=== PATIENT | male | born 1955 | race Caucasian/White ===

== ENCOUNTER 2018-12-19 10:55 | Day surgery (SDC) | payer OTHER ==
[2018-12-19] MEDS ORDERED: Ketamine HCl 50 MG/ML IV ONE (10:56)
[2018-12-19] MEDS ORDERED: Depo-Medrol 40 MG/ML IM ONE (10:56)
[2018-12-19] MEDS ORDERED: DIPRIVAN 200 MG/20 ML IV ONE (10:56)
[2018-12-19] MEDS ORDERED: Sodium Chloride 0.9(Preservative Free) 10 ML IJ ONE (10:56)
[2018-12-19] MEDS ORDERED: Lactated Ringers 1,000 ML IV ONE (14:23)
--- NOTE | 2018-12-19 16:27 | XRAY ---
24 seconds fluoroscopy time in surgery for left L4-S1 DONTRELL.
--- NOTE | 2018-12-20 05:06 | XRAY ---
Indication: Left L4-S1 DONTRELL. Intraoperative fluoroscopy was provided for 24 seconds. 2 digital spot images submitted for interpretation demonstrate posterior needle tips projected over the expected course of the left L4 and L5 nerve roots. A small contrast has been injected for needle tip placement. Correlate with intraoperative findings/report.
== END 2018-12-19 12:46 | disposition home or self-care (01) ==
LOC: SDC-PAIN 10:55
PROVIDERS: ATTEND Psychiatry & Neurology Pain Medicine
DX: M54.16 Radiculopathy, lumbar region (principal); M46.96 Unspecified inflammatory spondylopathy, lumbar region; I10 Essential (primary) hypertension; J44.9 Chronic obstructive pulmonary disease, unspecified; F41.9 Anxiety disorder, unspecified
CPT/HCPCS: 64483; 64484; 72020; 77003; J1030; J2704; Q9966

== ENCOUNTER 2019-01-24 14:33 | Emergency (ER) | payer OTHER ==
[2019-01-24] MEDS ORDERED: XYLOCAINE 1% HCL 20 ML MDV ONE (14:55)
--- NOTE | 2019-01-24 14:57 | ERPHSYRPT ---
- History of Present Illness Time Seen by Provider: 01/24/19 14:51 Source: patient Exam Limitations: no limitations Patient Subjective Stated Complaint: Pt states "I cut my hand with a experimental box tester. " Triage Nursing Assessment: Pt presented alert and oriented X 3, skin pwd. Pt ambulates with an upright steady gait, able to speak in clear full sentences. Pt has approx 2 cm laceration noted to left hadn proximal to thumb Physician History: 63-year-old white male arrives with complaint of laceration to his left hand dorsal surface symptoms since just prior to arrival. Patient states that he was cutting a hose with a box knife. He slipped and cut his left hand he has a 2 cm laceration running longitudinally proximal to the left hand first intertriginous space dorsal surface. He has full range of motion to the left hand and fingers good capillary refill to left hand and fingers sensation is intact to left hand and fingers. Past medical history includes high blood pressure, COPD Past surgical history includes right shoulder surgery. Occurred: just prior to arrival Method of Injury: incised (lacerated dorsal left hand with box knife) Extremities Pain Location: hand: left Modifying Factors: Improves With: nothing Associated Symptoms: none Allergies/Adverse Reactions: shrimp Allergy (Verified 11/29/16 15:15) Home Medications: Albuterol Sulfate [Albuterol Sulfate Hfa] 2 puff IH Q4-6HPRN PRN 11/29/16 [ History] Furosemide 20 mg [Lasix 20 mg] 20 mg PO DAILY 11/29/16 [History] Lisinopril 20 mg [Zestril 20 MG] 20 mg PO BID 11/29/16 [History] Metoprolol Tartrate [Lopressor] 100 mg PO BID 11/29/16 [History] Potassium Citrate [Potassium Citrate ER] 10 meq PO DAILY 11/29/16 [History] Amlodipine Besylate [Norvasc] 0 mg PO DAILY 03/03/17 [History] Bupropion HCl Xl 150 mg [Wellbutrin XL 150 MG] 150 mg PO BID 03/03/17 [ History] Hydroxyzine Pamoate 25 mg PO DAILY 03/03/17 [History] Naproxen 500 mg [Naprosyn 500 MG] 500 mg PO BID 10/24/17 [History] Oxycodone HCl/Acetaminophen [Percocet 7.5-325 mg Tablet] 1 each PO Q6H PRN PRN 10/24/17 [History] Hx Tetanus, Diphtheria Vaccination/Date Given: Yes Hx Influenza Vaccination/Date Given: No Hx Pneumococcal Vaccination/Date Given: No Immunizations Up to Date: Yes - Review of Systems Constitutional: No Fever, No Chills Eyes: No Symptoms Ears, Nose, & Throat: No Symptoms Respiratory: No Cough, No Dyspnea Cardiac: No Chest Pain, No Edema, No Syncope Abdominal/Gastrointestinal: No Abdominal Pain, No Nausea, No Vomiting, No Diarrhea Genitourinary Symptoms: No Dysuria Musculoskeletal: No Symptoms, Other (2 cm laceration left hand), No Back Pain, No Neck Pain Skin: Other (2 cm laceration dorsal left hand) Neurological: No Dizziness, No Focal Weakness, No Sensory Changes Psychological: No Symptoms Endocrine: No Symptoms All Other Systems: Reviewed and Negative - Past Medical History Neurological History: No Pertinent History Cardiac History: Hypertension Respiratory History: Asthma, COPD Endocrine Medical History: No Pertinent History Musculoskeletal History: Arthritis Other Medical History: SMOKES - Past Surgical History Past Surgical History: No - Social History Smoking Status: Current every day smoker How long have you smoked: years Exposure to second hand smoke: Yes Drug Use: none Patient Lives Alone: Yes - Nursing Vital Signs Nursing Vital Signs: Initial Vital Signs Temperature 98.6 F 01/24/19 14:38 Pulse Rate 76 01/24/19 14:38 Respiratory Rate 20 01/24/19 14:38 Blood Pressure 179/89 01/24/19 14:38 O2 Sat by Pulse Oximetry 92 L 01/24/19 14:38 Pain Scale Pain Intensity 4 - Physical Exam General Appearance: alert Eyes, Ears, Nose, Throat Exam: moist mucous membranes Neck Exam: non-tender, supple Cardiovascular/Respiratory Exam: chest non-tender, normal breath sounds, regular rate/rhythm, no respiratory distress Abdominal Exam: non-tender, No guarding Back Exam: normal inspection, No vertebral tenderness Shoulder Exam: normal inspection, non-tender, no evidence of injury, normal ROM Elbow/Forearm Exam: normal inspection, non-tender, no evidence of injury, normal ROM Wrist Exam: normal inspection, non-tender, no evidence of injury, normal ROM Hand Exam: non-tender, no evidence of injury, normal ROM, laceration (2 cm laceration, running longitudinally dorsal surface proximal to first intertriginous area) Neuro/Tendon Exam: normal sensation, normal motor functions Mental Status Exam: alert, oriented x 3, cooperative Skin Exam: normal color, warm, dry, other (2 cm laceration dorsal left hand running longitudinally proximal to first intertriginous area) SpO2 Interpretation: normal (92%) SpO2: 92 - Course Nursing assessment & vital signs reviewed: Yes Ordered Tests: Medication Summary Discontinued Medications Generic Name Dose Route Start Last Admin Trade Name Tarik PRN Reason Stop Dose Admin Lidocaine HCl Confirm 01/24/19 14:55 Xylocaine 1% Hcl 20 Ml Mdv Administered 01/24/19 14:56 Dose 1 ml .ROUTE .[employer] ONE - Progress Progress: improved Progress Note: 01/24/19 15:15 Laceration repair 2 cm laceration dorsal left hand. Laceration anesthetized with 1% lidocaine sterilely cleansed with Hibiclens and irrigated with saline. Laceration explored no foreign bodies. Patient's left hand thumb and index finger neurovascularly intact. Laceration sutured using 4 5.0 Prolene interrupted sutures. Bacitracin and sterile dressing applied. Patient states his tetanus is up-to-date. - Departure Departure Disposition: Home Clinical Impression: Hand laceration Qualifiers: Encounter type: initial encounter Foreign body presence: without foreign body Laterality: left Qualified Code(s): S61.412A - Laceration without foreign body of left hand, initial encounter Condition: Fair Critical Care Time: No Referrals: LEO MORRELL [Primary Care Provider] - Instructions: Laceration Repair With Stitches (DC) Additional Instructions: Return home. Keep area clean and dry. Sutures out in 5-7 days. Followup with your family DrAva or return if problems or signs of infection. Return for acute distress or for severe symptoms.
[2019-01-24] MEDS ORDERED: BACIGUENT PACKET ONE (15:16)
[2019-01-24] MEDS ORDERED: XYLOCAINE 1% HCL 20 ML MDV IJ ONE (15:20)
[2019-01-24] MEDS ORDERED: BACIGUENT PACKET TP ONE (15:20)
[2019-01-24 15:26] VITALS: BP 136/77; PULSE 65; O2SAT 99
== END 2019-01-24 15:29 | disposition home or self-care (01) ==
LOC: ED 14:33
DX: S61.412A Laceration without foreign body of left hand, initial encounter (principal); W26.8XXA Contact with other sharp object(s), not elsewhere classified, initial encounter
CPT/HCPCS: 12001; 96372; 99284; A9270-GY

== ENCOUNTER 2019-02-13 11:51 | Day surgery (SDC) | payer OTHER ==
[2019-02-13] MEDS ORDERED: Marcaine 0.5% SDV 10 ML IJ ONE (11:52)
[2019-02-13] MEDS ORDERED: Depo-Medrol 40 MG/ML IM ONE (11:52)
[2019-02-13] MEDS ORDERED: DIPRIVAN 200 MG/20 ML IV ONE (12:49)
[2019-02-13] MEDS ORDERED: Ketamine HCl 50 MG/ML ONE (12:49)
[2019-02-13] MEDS ORDERED: ROBINUL ONE (13:02)
[2019-02-13] MEDS ORDERED: Lactated Ringers 1,000 ML IV ONE (13:12)
--- NOTE | 2019-02-13 13:51 | XRAY ---
6 seconds fluoroscopy time in surgery for left intra-articular shoulder injection.
--- NOTE | 2019-02-13 13:51 | XRAY ---
Indication: Right shoulder injection. Intraoperative fluoroscopy was provided for 8 seconds. Single digital spot image submitted for interpretation demonstrates needle tip projecting over the right superior glenohumeral joint. Small amount of contrast injected for needle tip placement. Correlate with intraoperative findings/report.
--- NOTE | 2019-02-13 13:51 | XRAY ---
8 seconds fluoroscopy time in surgery for right intra-articular shoulder injection.
--- NOTE | 2019-02-13 13:51 | XRAY ---
Indication: Left shoulder injection. Intraoperative fluoroscopy was provided for 6 seconds. Single digital spot image submitted for interpretation demonstrates needle tip projecting over the left superior glenohumeral joint. Small amount of contrast injected for needle tip placement. Correlate with intraoperative findings/report.
== END 2019-02-13 13:23 | disposition home or self-care (01) ==
LOC: SDC-PAIN 11:51
PROVIDERS: ATTEND Psychiatry & Neurology Pain Medicine
DX: M19.012 Primary osteoarthritis, left shoulder (principal); M19.011 Primary osteoarthritis, right shoulder; I10 Essential (primary) hypertension; J44.9 Chronic obstructive pulmonary disease, unspecified; R60.9 Edema, unspecified; Z79.899 Other long term (current) drug therapy
CPT/HCPCS: 20610; 73030; 77002; J1030; J2704; Q9966

== ENCOUNTER 2019-03-06 13:01 | Day surgery (SDC) | payer OTHER ==
[2019-03-06] MEDS ORDERED: Depo-Medrol 40 MG/ML IM ONE (13:02)
[2019-03-06] MEDS ORDERED: Sodium Chloride 0.9(Preservative Free) 10 ML IJ ONE (13:02)
[2019-03-06] MEDS ORDERED: Xylocaine 1% Vial 30 ML PF IJ ONE (13:02)
--- NOTE | 2019-03-06 16:06 | XRAY ---
Indication: Lumbar DONTRELL. Intraoperative fluoroscopy was provided for 13 seconds. 2 digital spot images submitted for interpretation demonstrates midline posterior needle tip projecting just posterior to the lumbosacral interspace. Correlate with intraoperative findings/report.
--- NOTE | 2019-03-06 16:10 | XRAY ---
13 seconds fluoroscopy time in surgery for lumbar DONTRELL.
== END 2019-03-06 14:23 | disposition home or self-care (01) ==
LOC: SDC-PAIN 13:01
PROVIDERS: ATTEND Psychiatry & Neurology Pain Medicine
DX: M54.16 Radiculopathy, lumbar region (principal); I10 Essential (primary) hypertension; J44.9 Chronic obstructive pulmonary disease, unspecified; F41.9 Anxiety disorder, unspecified; Z79.899 Other long term (current) drug therapy
CPT/HCPCS: 62323; 72100; 77003; J1030; J2001; Q9966

== ENCOUNTER 2022-03-15 09:24 | Day surgery (SDC) | payer OTHER ==
[~2022-03-15 09:24] MED LIST: Ak-Dilate OPHTHALMIC*** 1.065 ML, Cyclogyl 1% OPHTH SOL 1.065 ML, GATIFLOXACIN 0.5% OPH... OP ONE; BETADINE 5% OPHTHALMIC 30 ML OP ONE; Lactated Ringers 1,000 ML IV SCH; NON-FORMULARY ITEM OP ONE; TETRACAINE 0.5% STERI-UNIT SOL OP ONE; cefUROXime sodium 0.005 GM in Sodium Chloride Flush 30 ML*** 0.5 ML IJ ONE
[2022-03-15] MEDS ORDERED: Epinephrine Preservative Free 1 MG/ML IJ ONE (09:25)
[2022-03-15] MEDS ORDERED: LIDOCAINE HCL 1% 50 MG/5 ML VL PF IJ ONE (09:25)
[2022-03-15] MEDS ORDERED: Lactated Ringers 1,000 ML IV ONE (10:07)
[2022-03-15] MEDS ORDERED: Zofran 4 MG/2 ML VIAL IV PRN (11:00)
[2022-03-15] MEDS ORDERED: ACETAZOLAMIDE 250 MG TABLET PO ONE (11:00)
[2022-03-15] MEDS ORDERED: Xylocaine-Mpf 2% 5 Ml Vial ONE (12:06)
[2022-03-15] MEDS ORDERED: DIPRIVAN 200 MG/20 ML IV ONE ×2 (12:06→12:14)
[2022-03-15] MEDS ORDERED: ROBINUL ONE (12:10)
[2022-03-15 12:37] VITALS: O2SAT 93
[2022-03-15 12:39] VITALS: BP 145/82; PULSE 88
== END 2022-03-15 12:48 | disposition home or self-care (01) ==
LOC: SDC 09:24
PROVIDERS: ATTEND Ophthalmology
DX: H25.811 Combined forms of age-related cataract, right eye (principal)
CPT/HCPCS: C1780; J0171; J2001; J2704; A9270-GY

== ENCOUNTER 2022-08-07 13:05 | Emergency (ER) | payer MEDICARE ==
[2022-08-07 13:23] VITALS: BP 148/85; O2SAT 95
--- NOTE | 2022-08-07 13:37 | ERPHSYRPT ---
- History of Present Illness Historian: patient Exam Limitations: other (Poor historian) Patient Subjective Stated Complaint: pt here for constipation, and pain with deep breath to left breast area, no fever, Triage Nursing Assessment: pt alert, walked in, resp easy, skin w/d/p, face mask in place, abd large and round, Physician History: 67 yo wm w h/o HTN/tobacco abuse/chronic pain requiring daily narcotics/probable CHF presents to the ER w constipation x 4 days. He denies abdominal pain/N/V/melena/hematochezia. Pt has been having some L anterior, inferior chest pain which is worse w deep inspirations. He denies fever/cough/dyspnea. He recently saw Dr. Salas and CXR was neg per pt. Timing/Duration: other (4 days) Activities at Onset: rest Quality: other (L anterior inferior chest pain but no abdominal pain) Abdominal Pain Onset Location: other (No pain) Pain Radiation: no radiation Severity of Pain-Max: none Severity of Pain-Current: none Modifying Factors: Improves With: nothing Associated Symptoms: denies symptoms Previous symptoms: same symptoms as today Allergies/Adverse Reactions: shrimp Allergy (Verified 08/07/22 13:17) Home Medications: Albuterol Sulfate [Albuterol Sulfate Hfa] 2 puff IH Q4-6HPRN PRN 11/29/16 [History] Furosemide 20 mg [Lasix 20 mg] 60 mg PO DAILY 11/29/16 [History] Amlodipine Besylate [Norvasc] 5 mg PO BID 03/03/17 [History] Bupropion HCl Xl 150 mg [Wellbutrin XL 150 MG] 150 mg PO BID 03/03/17 [History] Atorvastatin Calcium 20 mg PO HS 03/07/22 [History] Buspirone HCl 5 mg [Buspar 5 mg] 15 mg PO BID 03/07/22 [History] Carvedilol [Coreg ] 6.25 mg PO BID 03/07/22 [History] Fluticasone/Umeclidin/Vilanter [Trelegy Ellipta 100-62.5-25] 1 tab IH DAILY 03/07/22 [History] Sacubitril/Valsartan [Entresto 97 mg-103 mg Tablet] 1 tab PO BID 03/07/22 [History] Albuterol 2.5 mg/3 ml Neb [Proventil 2.5 mg/3 ml Neb] 2.5 mg IH QID 03/10/22 [History] Hydralazine HCl 50 mg PO BID 03/10/22 [History] Oxycodone HCl/Acetaminophen [Oxycodone-Acetaminophn 7.5-325] 1 each PO QID 03/15/22 [History] Potassium Chloride Tab* [Klor Con] 10 meq PO DAILY 03/15/22 [History] Hx Tetanus, Diphtheria Vaccination/Date Given: Yes Hx Influenza Vaccination/Date Given: No Hx Pneumococcal Vaccination/Date Given: No Immunizations Up to Date: Yes Travel Risk - International Travel Have you traveled outside of the country in past 3 weeks: No - Coronavirus Screening Are you exhibiting any of the following symptoms?: No - Vaccine Status Have you recieved a Covid-19 vaccination: No - Review of Systems Constitutional: No Symptoms Eyes: No Symptoms Ears, Nose, & Throat: No Symptoms Respiratory: No Symptoms Cardiac: No Symptoms Abdominal/Gastrointestinal: No Symptoms, Abdominal Pain Genitourinary Symptoms: No Symptoms Musculoskeletal: No Symptoms Skin: No Symptoms Neurological: No Symptoms Psychological: No Symptoms Endocrine: No Symptoms Hematologic/Lymphatic: No Symptoms Immunological/Allergic: No Symptoms - Past Medical History Pertinent Past Medical History: Yes Neurological History: No Pertinent History Cardiac History: Hypertension Respiratory History: Asthma, COPD, Emphysema Endocrine Medical History: No Pertinent History Musculoskeletal History: Arthritis GI Medical History: No Pertinent History History: No Pertinent History Psycho-Social History: Depression Male Reproductive Disorders: No Pertinent History Other Medical History: SMOKES - Past Surgical History Past Surgical History: Yes Neuro Surgical History: No Pertinent History Cardiac: No Pertinent History Respiratory: No Pertinent History Gastrointestinal: No Pertinent History Genitourinary: No Pertinent History Musculoskeletal: Orthopedic Surgery Male Surgical History: No Pertinent History Other Surgical History: shoulder, hand, tumors removed from back - Social History Smoking Status: Current every day smoker How long have you smoked: 50 years Exposure to second hand smoke: Yes Drug Use: none Patient Lives Alone: Yes - Nursing Vital Signs Nursing Vital Signs: Initial Vital Signs Temperature 97.8 F 08/07/22 13:22 Pulse Rate 74 08/07/22 13:22 Respiratory Rate 18 08/07/22 13:22 Blood Pressure 148/85 08/07/22 13:22 O2 Sat by Pulse Oximetry 95 08/07/22 13:22 Pain Scale Pain Intensity 5 Hypertensive - Physical Exam General Appearance: no apparent distress Eye Exam: PERRL/EOMI, eyes nml inspection Ears, Nose, Throat Exam: normal ENT inspection, TMs normal, pharynx normal, moist mucous membranes Neck Exam: normal inspection, non-tender, supple, full range of motion, No meningismus, No mass, No Brudzinski, No Kernig's Respiratory Exam: airway intact, crackles/rales (Rales at bases/L>R), No chest tenderness, No respiratory distress Cardiovascular Exam: regular rate/rhythm, normal heart sounds, normal peripheral pulses, capillary refill <2 sec, No murmur Gastrointestinal/Abdomen Exam: soft, normal bowel sounds, distention, No tenderness Back Exam: normal inspection, normal range of motion, No CVA tenderness, No vertebral tenderness Extremity Exam: normal inspection, normal range of motion Neurologic Exam: alert, oriented x 3, cooperative, normal mood/affect, nml station & gait, sensation nml Skin Exam: normal color, warm, dry Lymphatic Exam: No adenopathy SpO2 Interpretation: normal SpO2: 95 O2 Delivery: Room Air - Course Nursing assessment & vital signs reviewed: Yes EKG Interpreted by Me: RATE (NSR/R73/Normal QT-QTc/No acute ST segment changes) - CT Exams Abdomen/Pelvis CT Interpretation: Tele-radiologist Report (Ab-pelvis wo-hepatic lesions/aortic atherosclerosis/R colonic fluid) Ordered Tests: Active Orders 24 hr Category Date Time Status ABDOMEN AND PELVIS W/0 CONTRAS [CT] Stat Exams 08/07/22 14:15 Completed AMYLASE Stat Lab 08/07/22 13:50 Completed CBC W DIFF Stat Lab 08/07/22 13:28 Completed CMP Stat Lab 08/07/22 13:50 Completed LIPASE Stat Lab 08/07/22 13:50 Completed NT PRO BNP Stat Lab 08/07/22 13:50 Completed PROTIME WITH INR Stat Lab 08/07/22 13:50 Completed PTT Stat Lab 08/07/22 13:50 Completed TROPONIN Q4H Lab 08/07/22 13:50 Completed Lab/Rad Data: Laboratory Result Diagrams 08/07/22 13:28 08/07/22 13:50 Laboratory Results 08/07/22 08/07/22 08/07/22 Range/Units 13:50 13:50 13:50 WBC (4.0-10.5) x10^3/uL RBC (4.1-5.6) x10^6/uL Hgb (12.5-18.0) g/dL Hct (42-50) % MCV (78-100) fL MCH (26-32) pg MCHC (32-36) g/dL RDW (11.5-14.0) % Plt Count (150-450) x10^3/uL MPV (7.5-11.0) fL Gran % (36.0-66.0) % Immature Gran % (Auto) (0.00-0.4) % Nucleat RBC Rel Count (0.00-0.1) % Eos # (Auto) (0-0.5) x10^3/uL Immature Gran # (Auto) (0.00-0.03) x10^3u/L Absolute Lymphs (auto) (1.0-4.6) x10^3/uL Absolute Monos (auto) (0.0-1.3) x10^3/uL Absolute Nucleated RBC (0.00-0.01) x10^3u/L Lymphocytes % (24.0-44.0) % Monocytes % (0.0-12.0) % Eosinophils % (0.00-5.0) % Basophils % (0.0-0.4) % Absolute Granulocytes (1.4-6.9) x10^3/uL Basophils # (0-0.4) x10^3/uL PT 11.4 (9.4-12.5) SECONDS INR 1.08 (0.8-3.0) APTT 31.0 (25.1-36.5) SECONDS Sodium 133 L (137-145) mmol/L Potassium 3.9 (3.5-5.1) mmol/L Chloride 100 (98-107) mmol/L Carbon Dioxide 25 (22-30) mmol/L Anion Gap 11.1 (5-15) MEQ/L BUN 8 L (9-20) mg/dL Creatinine 0.59 L (0.66-1.25) mg/dL Estimated GFR > 60.0 ML/MIN Glucose 101 (74-106) mg/dL Calcium 9.1 (8.4-10.2) mg/dL Total Bilirubin 0.70 (0.2-1.3) mg/dL AST 32 (17-59) U/L ALT 25 (0-50) U/L Alkaline Phosphatase 110 (38-126) U/L Troponin I < 0.012 (0.000-0.034) ng/mL NT-Pro-B Natriuret Pep 85.8 (0-900) pg/mL Serum Total Protein 6.9 (6.3-8.2) g/dL Albumin 3.8 (3.5-5.0) g/dL Amylase 38 (30-110) U/L Lipase 21 L (23-300) U/L 08/07/22 Range/Units 13:28 WBC 9.7 (4.0-10.5) x10^3/uL RBC 3.85 L (4.1-5.6) x10^6/uL Hgb 12.1 L (12.5-18.0) g/dL Hct 37.7 L (42-50) % MCV 97.9 (78-100) fL MCH 31.4 (26-32) pg MCHC 32.1 (32-36) g/dL RDW 12.5 (11.5-14.0) % Plt Count 258 (150-450) x10^3/uL MPV 9.3 (7.5-11.0) fL Gran % 69.4 H (36.0-66.0) % Immature Gran % (Auto) 0.3 (0.00-0.4) % Nucleat RBC Rel Count 0.0 (0.00-0.1) % Eos # (Auto) 0.06 (0-0.5) x10^3/uL Immature Gran # (Auto) 0.03 (0.00-0.03) x10^3u/L Absolute Lymphs (auto) 1.51 (1.0-4.6) x10^3/uL Absolute Monos (auto) 1.30 (0.0-1.3) x10^3/uL Absolute Nucleated RBC 0.00 (0.00-0.01) x10^3u/L Lymphocytes % 15.6 L (24.0-44.0) % Monocytes % 13.4 H (0.0-12.0) % Eosinophils % 0.6 (0.00-5.0) % Basophils % 0.7 (0.0-0.4) % Absolute Granulocytes 6.70 (1.4-6.9) x10^3/uL Basophils # 0.07 (0-0.4) x10^3/uL PT (9.4-12.5) SECONDS INR (0.8-3.0) APTT (25.1-36.5) SECONDS Sodium (137-145) mmol/L Potassium (3.5-5.1) mmol/L Chloride (98-107) mmol/L Carbon Dioxide (22-30) mmol/L Anion Gap (5-15) MEQ/L BUN (9-20) mg/dL Creatinine (0.66-1.25) mg/dL Estimated GFR ML/MIN Glucose (74-106) mg/dL Calcium (8.4-10.2) mg/dL Total Bilirubin (0.2-1.3) mg/dL AST (17-59) U/L ALT (0-50) U/L Alkaline Phosphatase (38-126) U/L Troponin I (0.000-0.034) ng/mL NT-Pro-B Natriuret Pep (0-900) pg/mL Serum Total Protein (6.3-8.2) g/dL Albumin (3.5-5.0) g/dL Amylase (30-110) U/L Lipase (23-300) U/L - Progress Progress Note: 08/07/22 15:[address] results reviewed Labs/CT results shared w pt Pt w possible hepatic mets. He has an appointment w his [facility] in the AM and wants to establish treatment plan w Kimberly Sood in the AM. No significant constipation on CT scan but will prescribe lactulose to pt. Counseled pt/family regarding: lab results, diagnosis, need for follow-up, rad results - Departure Departure Disposition: Home Clinical Impression: Liver mass, Constipation Condition: Stable Critical Care Time: No Referrals: LEO SOOD NP [Primary Care Provider] - Follow up/PCP as directed Instructions: Constipation, Adult (DC) Additional Instructions: Follow up with your PCP in the morning Lactulose as needed Return to ER for worsening of condition Prescriptions: Lactulose [Lactulose 20 gm/30Ml Ud Cup] 20 gm PO BID PRN #300 ml PRN Reason: Constipation
[2022-08-07 13:57] LABS: Basophil (Absolute #) 0.07 x10^3/uL (0-0.4); Eosinophil % 0.6 % (0.00-5.0); Eosinophil (Absolute #) 0.06 x10^3/uL (0-0.5); Hematocrit 37.7 % (42-50); Hemoglobin 12.1 g/dL (12.5-18.0); Lymphocyte (Absolute #) 1.51 x10^3/uL (1.0-4.6); Lymphocytes % 15.6 % (24.0-44.0); Mean Cell Volume 97.9 fL (78-100); Mean Corpuscular Hemoglobin 31.4 pg (26-32); Mean Corpuscular Hgb Concent. 32.1 g/dL (32-36); Mean Platelet Volume 9.3 fL (7.5-11.0); Monocytes % 13.4 % (0.0-12.0); Neutrophil % 69.4 % (36.0-66.0); Platelet Count 258 x10^3/uL (150-450); Red Blood Count 3.85 x10^6/uL (4.1-5.6); Red Cell Distribution Width 12.5 % (11.5-14.0); White Blood Count 9.7 x10^3/uL (4.0-10.5)
[2022-08-07 14:16] LABS: INR 1.08 (0.8-3.0); PROTIME 11.4 SECONDS (9.4-12.5)
[2022-08-07 14:23] LABS: ALBUMIN 3.8 g/dL (3.5-5.0); ALKALINE PHOSPHATASE 110 U/L (38-126); AMYLASE 38 U/L (30-110); ANION GAP 11.1 MEQ/L (5-15); BLOOD UREA NITROGEN 8 mg/dL (9-20); CHLORIDE 100 mmol/L (98-107); Calcium 9.1 mg/dL (8.4-10.2); Carbon Dioxide 25 mmol/L (22-30); Creatinine 1 0.59 mg/dL (0.66-1.25); EST GLOMERULAR FILTRATION RATE > 60.0 ML/MIN; Glucose 101 mg/dL (74-106); LIPASE 21 U/L (23-300); NT PRO BNP 85.8 pg/mL (0-900); Potassium 3.9 mmol/L (3.5-5.1); SGOT/AST 32 U/L (17-59); SGPT/ALT 25 U/L (0-50); SODIUM 133 mmol/L (137-145); Total Protein 6.9 g/dL (6.3-8.2)
[2022-08-07 15:19] VITALS: PULSE 61
--- NOTE | 2022-08-07 18:32 | XRAY ---
Indication: Constipation 2 weeks. Bloating and gas. Multiple contiguous axial images obtained through the abdomen and pelvis without contrast. Comparison: None Lung bases demonstrates incompletely visualized right middle lobe masslike opacities, largest at least 3.0 x 2.8 x 1.2 cm. Mild bibasilar subsegmental atelectasis/scarring. Heart not enlarged. Noncontrasted stomach and bowel loops appear nonobstructed with normal appendix. Mild fecal debris predominantly in the ascending and lesser degree transverse colon with fluid leveling. Mild sigmoid diverticulosis without diverticulitis. No free fluid/air. Liver demonstrates multiple subtle hypodense lesions, largest inferior right lobe measuring at least 6 cm in diameter worrisome for metastatic malignancy. Left mid kidney demonstrates nonspecific punctate cortical calcification. Incidental 2.5 cm left adrenal adenoma. Remaining gallbladder, pancreas, spleen, right adrenal gland, kidneys, ureters, and bladder are unremarkable for noncontrast exam. Moderate scattered aortoiliac calcifications without AAA. Osseous structures intact with osteopenia, mild/moderate multilevel degenerative spondylosis, and bilateral L5 spondylolysis with minimal 1-2 mm listhesis. Impression: 1. Incompletely visualized right middle lobe masslike opacities. Dedicated CT chest with contrast exam recommended if not already performed elsewhere. 2. Multiple hepatic hypodense lesions worrisome for metastatic malignancy. 3. Colonic diarrhea and sigmoid diverticulosis. 4. Incidental left adrenal adenoma, arteriosclerotic disease, nonspecific left renal punctate cortical calcification, and chronic bony findings. Comment: Preliminary interpretation made by [facility] [[email or web address]] who reports the right middle lobe masslike opacities as pulmonary scarring. Comment: Preliminary interpretation made by [facility] [[email or web address]]. No critical discrepancy.
== END 2022-08-07 15:43 | disposition home or self-care (01) ==
LOC: ED 13:05
DX: R16.0 Hepatomegaly, not elsewhere classified (principal); K59.00 Constipation, unspecified; R07.9 Chest pain, unspecified; I10 Essential (primary) hypertension; Z79.891 Long term (current) use of opiate analgesic; Z79.899 Other long term (current) drug therapy; Z28.310 Unvaccinated for COVID-19; Z72.0 Tobacco use
CPT/HCPCS: 36000; 36415; 74176; 80053; 82150; 83690; 83880; 84484; 85025; 85610; 85730; 99283

== ENCOUNTER 2022-11-04 22:38 | Emergency (ER) | payer MEDICARE ==
--- NOTE | 2022-11-04 22:45 | ERPHSYRPT ---
- History of Present Illness Time Seen by Provider: 11/04/22 22:45 Source: patient Exam Limitations: no limitations Physician History: Patient presents w/ severe dyspnea for the past several days, recently seen in [facility]. He has a hx of metastic CA, oncologist Dr. Fraser at [facility]. He reports substernal chest pain, RUQ abd pain, SOB. He denies productive cough. Patient currently rates his pain as a 8/10 in severity and appears very uncomfortable. Bedside US performed which showed no pneumothorax or drainable pleural effusion. There was a small amount of ascites on abdominal exam. Timing/Duration: week(s) (1), worse Activities at Onset: none Severity of Dyspnea-Max: severe Severity of Dyspnea-Current: severe Possible Cause: frequent episodes, unknown cause (metastatic CA) Modifying Factors: Worsens With: activity, coughing, deep breath, exertion, lying down Associated Symptoms: constant, cough, chest pain/discomfort, edema, loss of appetite, wheezing, weakness, heaviness, heart racing, leg swelling, sweating, No fever Allergies/Adverse Reactions: shrimp Allergy (Verified 11/04/22 22:40) Home Medications: Albuterol Sulfate [Albuterol Sulfate Hfa] 2 puff IH Q4-6HPRN PRN 11/29/16 [History] Bupropion HCl Xl 150 mg [Wellbutrin XL 150 MG] 150 mg PO BID 03/03/17 [History] Atorvastatin Calcium 20 mg PO HS 03/07/22 [History] Buspirone HCl 5 mg [Buspar 5 mg] 15 mg PO BID 03/07/22 [History] Carvedilol [Coreg ] 6.25 mg PO BID 03/07/22 [History] Fluticasone/Umeclidin/Vilanter [Trelegy Ellipta 100-62.5-25] 1 tab IH DAILY 03/07/22 [History] Sacubitril/Valsartan [Entresto 97 mg-103 mg Tablet] 1 tab PO BID 03/07/22 [History] Albuterol 2.5 mg/3 ml Neb [Proventil 2.5 mg/3 ml Neb] 2.5 mg IH QID [History] Oxycodone HCl/Acetaminophen [Oxycodone-Acetaminophn 7.5-325] 1 each PO QID 03/15/22 [History] Potassium Chloride Tab* [Klor Con] 10 meq PO DAILY 03/15/22 [History] Azithromycin 250 mg [Zithromax 250 MG TABLET] 250 mg PO DAILY 11/04/22 [History] Cyclobenzaprine HCl 5 mg PO TID 11/04/22 [History] Furosemide 40 mg PO DAILY 11/04/22 [History] Lactulose [Lactulose 20 gm/30Ml Ud Cup] 15 gm PO DAILY 11/04/22 [History] Pantoprazole 20 mg [Protonix 20MG Tablet] 20 mg PO DAILY 11/04/22 [History] hydrOXYzine HCL [Hydroxyzine HCl] 25 mg PO HS 11/04/22 [History] predniSONE [Prednisone] 50 mg PO DAILY 11/04/22 [History] Hx Tetanus, Diphtheria Vaccination/Date Given: Yes Hx Influenza Vaccination/Date Given: No Hx Pneumococcal Vaccination/Date Given: No Travel Risk - Vaccine Status Have you recieved a Covid-19 vaccination: No - Review of Systems Constitutional: Fatigue, Malaise, Weakness, No Fever, No Chills Eyes: No Symptoms Ears, Nose, & Throat: No Symptoms Respiratory: Cough, Dyspnea, Dyspnea on Exertion (OLIVER), Wheezing Cardiac: Chest Pain, Edema, Orthopnea Abdominal/Gastrointestinal: Abdominal Pain, Nausea, No Vomiting Genitourinary Symptoms: No Symptoms Musculoskeletal: Myalgias Skin: No Symptoms Neurological: No Symptoms All Other Systems: Reviewed and Negative - Past Medical History Pertinent Past Medical History: Yes Neurological History: No Pertinent History Cardiac History: Hypertension Respiratory History: Asthma, COPD, Emphysema Endocrine Medical History: No Pertinent History Musculoskeletal History: Arthritis GI Medical History: No Pertinent History History: No Pertinent History Psycho-Social History: Depression Male Reproductive Disorders: No Pertinent History Other Medical History: SMOKES - Past Surgical History Past Surgical History: Yes Neuro Surgical History: No Pertinent History Cardiac: No Pertinent History Respiratory: No Pertinent History Gastrointestinal: No Pertinent History Genitourinary: No Pertinent History Musculoskeletal: Orthopedic Surgery Male Surgical History: No Pertinent History Other Surgical History: shoulder, hand, tumors removed from back - Social History Smoking Status: Current every day smoker How long have you smoked: 50 years Exposure to second hand smoke: Yes Drug Use: none Patient Lives Alone: Yes - Nursing Vital Signs Nursing Vital Signs: Initial Vital Signs Temperature 98.1 F 11/04/22 22:54 Pulse Rate 83 11/04/22 22:54 Respiratory Rate 14 11/04/22 22:54 Blood Pressure 108/83 11/04/22 22:54 O2 Sat by Pulse Oximetry 97 11/04/22 22:54 Pain Scale Pain Intensity 6 - Physical Exam General Appearance: moderate distress, anxiety, obese Eye Exam: PERRL/EOMI, eyes nml inspection Ears, Nose, Throat Exam: hearing grossly normal, normal ENT inspection Neck Exam: normal inspection, non-tender Respiratory Exam: respiratory distress, airway intact, No chest tenderness, No wheezing Cardiovascular/Chest Exam: normal heart sounds, regular rate/rhythm, edema Abdominal/Gastrointestinal Exam: tenderness (ruq), distention, guarding, other (mild ascites present on POCUS), No mass, No rebound Extremity Exam: normal inspection, normal capillary refill, no calf tenderness, swelling (1) Neurologic Exam: alert, oriented x 3, cooperative Skin Exam: diaphoresis, pale SpO2 Interpretation: borderline oxygenation O2 Delivery: Room Air - Course Nursing assessment & vital signs reviewed: Yes EKG Interpreted by Me: RATE (78), Sinus Rhythm, NORMAL AXIS, NORMAL QRS, NORMAL ST-T, Other (HI 213) - CT Exams Chest CT Interpretation: Tele-radiologist Report, Other (mediastinal LAD w/ large lobulated mass RML and spiculated mass REAGAN. Multiple osseous and hepatic lesions. ) Abdomen/Pelvis CT Interpretation: Tele-radiologist Report, Other (liver enlarged, studded w/ multiple metastatic lesions which show significant increase in size and number. Interval development of subcapsular sub diaphragmatic collection measuring 10x1.8cm. Mild intrahepatic fat stranding. Unchanged left adrenal nodular lesions. ) Ordered Tests: Active Orders 24 hr Category Date Time Status Aquatic Ecologist STAT Care 11/04/22 22:56 Completed EKG-ER Only STAT Care 11/04/22 22:53 Completed IV Insertion STAT Care 11/04/22 22:53 Completed Pulse Oximetry (ED) STAT Care 11/04/22 22:53 Completed ABDOMEN AND PELVIS W/0 CONTRAS [CT] Stat Exams 11/04/22 22:59 Completed CHEST WITHOUT CONTRAST [CT] Stat Exams 11/04/22 22:55 Completed ARTERIAL BLOOD GASES Stat Lab 11/04/22 23:06 Completed BLOOD CULTURE Stat Lab 11/04/22 23:20 Received CBC W DIFF Stat Lab 11/04/22 23:10 Completed CMP Stat Lab 11/04/22 23:10 Completed Lactic Acid Stat Lab 11/04/22 23:06 Completed MAGNESIUM Stat Lab 11/04/22 23:10 Completed NT PRO BNPII Stat Lab 11/04/22 23:10 Completed PROCALCITONIN Stat Lab 11/04/22 23:10 Completed PROTIME WITH INR Stat Lab 11/04/22 23:10 Completed PTT Stat Lab 11/04/22 23:10 Completed TROPONIN Q4H Lab 11/04/22 23:10 Completed TROPONIN Q4H Lab 11/05/22 04:00 Completed Respiratory Therapy Assessment DAILY RT 11/04/22 23:19 Completed Medication Summary Discontinued Medications Generic Name Dose Route Start Last Admin Trade Name Freq PRN Reason Stop Dose Admin Albuterol/Ipratropium 3 ml 11/04/22 22:53 11/04/22 23:20 Ipratropium/Albuterol Sulfate 3 Ml Ampul.Neb IH 11/04/22 22:54 3 ml STAT ONE Administration Albuterol/Ipratropium Confirm 11/04/22 23:05 Ipratropium/Albuterol Sulfate 3 Ml Ampul.Neb Administered 11/04/22 23:06 Dose 3 ml IH .STK-MED ONE Methylprednisolone Sodium 0 mg 11/04/22 22:53 11/04/22 23:30 Succinate 125 mg/ Sterile IV 11/04/22 22:54 125 mg Water 2 ml STAT ONE Administration Furosemide 40 mg 11/04/22 22:53 11/04/22 23:31 Furosemide 40 Mg/4 Ml Vial IV 11/04/22 22:54 40 mg STAT ONE Administration Furosemide Confirm 11/04/22 23:25 Furosemide 40 Mg/4 Ml Vial Administered 11/04/22 23:26 Dose 40 mg .ROUTE .STK-MED ONE Sodium Chloride 1,000 mls @ 999 mls/hr 11/05/22 00:43 11/05/22 01:52 Sodium Chloride 0.9% 1000 Ml IV 11/05/22 01:43 Infused .Q1H1M STA Infusion Piperacillin Sod/Tazobactam 100 mls @ 200 mls/hr 11/05/22 00:43 11/05/22 00:49 Sod 3.375 gm/ Sodium Chloride IV 11/05/22 01:12 200 mls/hr STAT ONE Administration Vancomycin HCl 1 gm in 200 mls @ 125 mls/hr 11/05/22 00:43 11/05/22 03:17 Vancomycin 1 Gram/200 Ml Bag IV 11/05/22 02:18 Infused STAT ONE Infusion Sodium Chloride Confirm 11/05/22 00:49 Sodium Chloride 100ml Mini-Bag Plus Administered 11/05/22 00:50 Dose 100 mls @ ud IV .STK-MED ONE Sodium Chloride Confirm 11/05/22 00:49 Sodium Chloride 0.9% 1000 Ml Administered 11/05/22 00:50 Dose 1,000 mls @ ud .ROUTE .STK-MED ONE Vancomycin HCl Confirm 11/05/22 01:14 Vancomycin 1 Gram/200 Ml Bag Administered 11/05/22 01:15 Dose 1 gm in 200 mls @ ud IV .STK-MED ONE Lorazepam 1 mg 11/04/22 22:53 11/04/22 23:31 Lorazepam 2 Mg/1 Ml 2 Mg Vial IV 11/04/22 22:54 1 mg STAT ONE Administration Lorazepam Confirm 11/04/22 23:26 Lorazepam 2 Mg/1 Ml 2 Mg Vial Administered 11/04/22 23:27 Dose 2 mg .ROUTE .STK-MED ONE Methylprednisolone Sodium Succinate Confirm 11/04/22 23:25 Methylprednis Sod Succ 125 Mg/2 Ml Vial Administered 11/04/22 23:26 Dose 125 mg .ROUTE .STK-MED ONE Morphine Sulfate 2 mg 11/04/22 22:57 11/04/22 23:31 Morphine Sulfate 2 Mg/Ml Inj IV 11/04/22 22:58 2 mg STAT ONE Administration Morphine Sulfate Confirm 11/04/22 23:26 Morphine Sulfate 2 Mg/Ml Inj Administered 11/04/22 23:27 Dose 2 mg .ROUTE .STK-MED ONE Morphine Sulfate 2 mg 11/05/22 00:25 11/05/22 00:34 Morphine Sulfate 2 Mg/Ml Inj IV 11/05/22 00:26 2 mg STAT ONE Administration Morphine Sulfate Confirm 11/05/22 00:33 Morphine Sulfate 2 Mg/Ml Inj Administered 11/05/22 00:34 Dose 2 mg .ROUTE .STK-MED ONE Morphine Sulfate 2 mg 11/05/22 02:37 11/05/22 02:48 Morphine Sulfate 2 Mg/Ml Inj IV 11/05/22 02:38 2 mg STAT ONE Administration Morphine Sulfate Confirm 11/05/22 02:48 Morphine Sulfate 2 Mg/Ml Inj Administered 11/05/22 02:49 Dose 2 mg .ROUTE .STK-MED ONE Piperacillin Sod/Tazobactam Sod Confirm 11/05/22 00:48 Piperacillin/Tazobactam Sodium 3.375 Gm Vial Administered 11/05/22 00:49 Dose 3.375 gm IV .STK-MED ONE Sterile Water Confirm 11/04/22 23:25 Water For Injection,Sterile 10 Ml Vial Administered 11/04/22 23:26 Dose 10 ml IJ .STK-MED ONE Lab/Rad Data: Laboratory Result Diagrams 11/04/22 23:10 11/04/22 23:10 Laboratory Results 11/05/22 11/04/22 11/04/22 Range/Units 04:00 23:25 23:10 WBC (4.0-10.5) x10^3/uL RBC (4.1-5.6) x10^6/uL Hgb (12.5-18.0) g/dL Hct (42-50) % MCV (78-100) fL MCH (26-32) pg MCHC (32-36) g/dL RDW (11.5-14.0) % Plt Count (150-450) x10^3/uL MPV (7.5-11.0) fL Gran % (36.0-66.0) % Immature Gran % (Auto) (0.00-0.4) % Nucleat RBC Rel Count (0.00-0.1) % Eos # (Auto) (0-0.5) x10^3/uL Immature Gran # (Auto) (0.00-0.03) x10^3u/L Absolute Lymphs (auto) (1.0-4.6) x10^3/uL Absolute Monos (auto) (0.0-1.3) x10^3/uL Absolute Nucleated RBC (0.00-0.01) x10^3u/L Lymphocytes % (24.0-44.0) % Monocytes % (0.0-12.0) % Eosinophils % (0.00-5.0) % Basophils % (0.0-0.4) % Absolute Granulocytes (1.4-6.9) x10^3/uL Basophils # (0-0.4) x10^3/uL PT (9.4-12.5) SECONDS INR (0.8-3.0) APTT (25.1-36.5) SECONDS Puncture Site pCO2 (35-45) mmHg pO2 (75-100) mmHg Base Excess (-2.0-2.0) O2 Saturation (94-100) g/dF ABG pH (7.35-7.45) ABG HCO3 (22-28) ABG O2 Sat (Measured) (95-100) % Rinku Test A-a Gradient a/A Ratio Hemoglobin Carboxyhemoglobin (0.0-6.9) % THgb Methemoglobin (1.4-1.5) % Potassium (3.5-5.1) Temperature C POC O2 Flow Rate % Sodium (137-145) mmol/L Chloride (98-107) mmol/L Carbon Dioxide (22-30) mmol/L Anion Gap (5-15) MEQ/L BUN (9-20) mg/dL Creatinine (0.66-1.25) mg/dL Estimated GFR ML/MIN Glucose (74-106) mg/dL Lactic Acid (0.4-2.0) Calcium (8.4-10.2) mg/dL Magnesium (1.6-2.3) mg/dL Total Bilirubin (0.2-1.3) mg/dL AST (17-59) U/L ALT (0-50) U/L Alkaline Phosphatase (38-126) U/L Troponin I < 0.012 (0.000-0.034) ng/mL NT-Pro-B Natriuret Pep (<300) pg/mL Serum Total Protein (6.3-8.2) g/dL Albumin (3.5-5.0) g/dL Procalcitonin 51.200 H* (0.030-0.080) ng/mL Urine Color (Yellow) Urine Appearance (Clear) Urine pH (4.6-8.0) Ur Specific [place] (1.005-1.030) Urine Protein (Negative) Urine Glucose (UA) (Negative) mg/dL Urine Ketones (Negative) Urine Blood (Negative) Urine Nitrite (Negative) Urine Bilirubin (Negative) Urine Urobilinogen (0.2) mg/dL Ur Leukocyte Esterase (Negative) U Hyaline Cast (Auto) (0-2) /LPF Urine Microscopic RBC (0-5) /HPF Urine Microscopic WBC (0-5) /HPF Ur Epithelial Cells (None Seen) /HPF Urine Bacteria (None Seen) /HPF Urine Culture Reflexed (NO) Influenza Type A Ag NEGATIVE (NEGATIVE) Influenza Type B Ag NEGATIVE (NEGATIVE) RSV (PCR) NEGATIVE (NEGATIVE) SARS-CoV-2 (PCR) NEGATIVE (NEGATIVE) 11/04/22 11/04/22 11/04/22 Range/Units 23:10 23:10 23:10 WBC (4.0-10.5) x10^3/uL RBC (4.1-5.6) x10^6/uL Hgb (12.5-18.0) g/dL Hct (42-50) % MCV (78-100) fL MCH (26-32) pg MCHC (32-36) g/dL RDW (11.5-14.0) % Plt Count (150-450) x10^3/uL MPV (7.5-11.0) fL Gran % (36.0-66.0) % Immature Gran % (Auto) (0.00-0.4) % Nucleat RBC Rel Count (0.00-0.1) % Eos # (Auto) (0-0.5) x10^3/uL Immature Gran # (Auto) (0.00-0.03) x10^3u/L Absolute Lymphs (auto) (1.0-4.6) x10^3/uL Absolute Monos (auto) (0.0-1.3) x10^3/uL Absolute Nucleated RBC (0.00-0.01) x10^3u/L Lymphocytes % (24.0-44.0) % Monocytes % (0.0-12.0) % Eosinophils % (0.00-5.0) % Basophils % (0.0-0.4) % Absolute Granulocytes (1.4-6.9) x10^3/uL Basophils # (0-0.4) x10^3/uL PT 11.0 (9.4-12.5) SECONDS INR 1.01 (0.8-3.0) APTT 24.9 L (25.1-36.5) SECONDS Puncture Site pCO2 (35-45) mmHg pO2 (75-100) mmHg Base Excess (-2.0-2.0) O2 Saturation (94-100) g/dF ABG pH (7.35-7.45) ABG HCO3 (22-28) ABG O2 Sat (Measured) (95-100) % Rinku Test A-a Gradient a/A Ratio Hemoglobin Carboxyhemoglobin (0.0-6.9) % THgb Methemoglobin (1.4-1.5) % Potassium (3.5-5.1) Temperature C POC O2 Flow Rate % Sodium (137-145) mmol/L Chloride (98-107) mmol/L Carbon Dioxide (22-30) mmol/L Anion Gap (5-15) MEQ/L BUN (9-20) mg/dL Creatinine (0.66-1.25) mg/dL Estimated GFR ML/MIN Glucose (74-106) mg/dL Lactic Acid (0.4-2.0) Calcium (8.4-10.2) mg/dL Magnesium (1.6-2.3) mg/dL Total Bilirubin (0.2-1.3) mg/dL AST (17-59) U/L ALT (0-50) U/L Alkaline Phosphatase (38-126) U/L Troponin I < 0.012 (0.000-0.034) ng/mL NT-Pro-B Natriuret Pep 222 (<300) pg/mL Serum Total Protein (6.3-8.2) g/dL Albumin (3.5-5.0) g/dL Procalcitonin (0.030-0.080) ng/mL Urine Color (Yellow) Urine Appearance (Clear) Urine pH (4.6-8.0) Ur Specific [place] (1.005-1.030) Urine Protein (Negative) Urine Glucose (UA) (Negative) mg/dL Urine Ketones (Negative) Urine Blood (Negative) Urine Nitrite (Negative) Urine Bilirubin (Negative) Urine Urobilinogen (0.2) mg/dL Ur Leukocyte Esterase (Negative) U Hyaline Cast (Auto) (0-2) /LPF Urine Microscopic RBC (0-5) /HPF Urine Microscopic WBC (0-5) /HPF Ur Epithelial Cells (None Seen) /HPF Urine Bacteria (None Seen) /HPF Urine Culture Reflexed (NO) Influenza Type A Ag (NEGATIVE) Influenza Type B Ag (NEGATIVE) RSV (PCR) (NEGATIVE) SARS-CoV-2 (PCR) (NEGATIVE) 11/04/22 11/04/22 11/04/22 Range/Units 23:10 23:10 23:06 WBC 16.4 H (4.0-10.5) x10^3/uL RBC 2.62 L (4.1-5.6) x10^6/uL Hgb 8.1 L (12.5-18.0) g/dL Hct 25.9 L (42-50) % MCV 98.9 (78-100) fL MCH 30.9 (26-32) pg MCHC 31.3 L (32-36) g/dL RDW 16.8 H (11.5-14.0) % Plt Count 308 (150-450) x10^3/uL MPV 9.9 (7.5-11.0) fL Gran % 73.2 H (36.0-66.0) % Immature Gran % (Auto) 0.9 H (0.00-0.4) % Nucleat RBC Rel Count 0.0 (0.00-0.1) % Eos # (Auto) 0.02 (0-0.5) x10^3/uL Immature Gran # (Auto) 0.15 H (0.00-0.03) x10^3u/L Absolute Lymphs (auto) 1.92 (1.0-4.6) x10^3/uL Absolute Monos (auto) 2.24 H (0.0-1.3) x10^3/uL Absolute Nucleated RBC 0.00 (0.00-0.01) x10^3u/L Lymphocytes % 11.7 L (24.0-44.0) % Monocytes % 13.7 H (0.0-12.0) % Eosinophils % 0.1 (0.00-5.0) % Basophils % 0.4 (0.0-0.4) % Absolute Granulocytes 12.01 H (1.4-6.9) x10^3/uL Basophils # 0.06 (0-0.4) x10^3/uL PT (9.4-12.5) SECONDS INR (0.8-3.0) APTT (25.1-36.5) SECONDS Puncture Site RIGHT RADIAL pCO2 39 (35-45) mmHg pO2 74 L (75-100) mmHg Base Excess 8.3 H (-2.0-2.0) O2 Saturation 93.8 L (94-100) g/dF ABG pH 7.52 H (7.35-7.45) ABG HCO3 31.8 H* (22-28) ABG O2 Sat (Measured) 97.6 (95-100) % Rinku Test YES A-a Gradient 27 a/A Ratio 0.73 Hemoglobin 10.7 Carboxyhemoglobin 3.1 (0.0-6.9) % THgb Methemoglobin 0.8 L (1.4-1.5) % Potassium 3.7 3.6 (3.5-5.1) Temperature 37.0 C POC O2 Flow Rate 21 % Sodium 131 L (137-145) mmol/L Chloride 93 L (98-107) mmol/L Carbon Dioxide 36 H (22-30) mmol/L Anion Gap 5.6 (5-15) MEQ/L BUN 8 L (9-20) mg/dL Creatinine 0.39 L (0.66-1.25) mg/dL Estimated GFR > 60.0 ML/MIN Glucose 83 (74-106) mg/dL Lactic Acid 1.2 (0.4-2.0) Calcium 7.6 L (8.4-10.2) mg/dL Magnesium 2.3 (1.6-2.3) mg/dL Total Bilirubin 0.40 (0.2-1.3) mg/dL AST 78 H (17-59) U/L ALT 24 (0-50) U/L Alkaline Phosphatase 204 H (38-126) U/L Troponin I (0.000-0.034) ng/mL NT-Pro-B Natriuret Pep (<300) pg/mL Serum Total Protein 5.8 L (6.3-8.2) g/dL Albumin 3.1 L (3.5-5.0) g/dL Procalcitonin (0.030-0.080) ng/mL Urine Color (Yellow) Urine Appearance (Clear) Urine pH (4.6-8.0) Ur Specific [place] (1.005-1.030) Urine Protein (Negative) Urine Glucose (UA) (Negative) mg/dL Urine Ketones (Negative) Urine Blood (Negative) Urine Nitrite (Negative) Urine Bilirubin (Negative) Urine Urobilinogen (0.2) mg/dL Ur Leukocyte Esterase (Negative) U Hyaline Cast (Auto) (0-2) /LPF Urine Microscopic RBC (0-5) /HPF Urine Microscopic WBC (0-5) /HPF Ur Epithelial Cells (None Seen) /HPF Urine Bacteria (None Seen) /HPF Urine Culture Reflexed (NO) Influenza Type A Ag (NEGATIVE) Influenza Type B Ag (NEGATIVE) RSV (PCR) (NEGATIVE) SARS-CoV-2 (PCR) (NEGATIVE) 11/04/22 Range/Units 01:02 WBC (4.0-10.5) x10^3/uL RBC (4.1-5.6) x10^6/uL Hgb (12.5-18.0) g/dL Hct (42-50) % MCV (78-100) fL MCH (26-32) pg MCHC (32-36) g/dL RDW (11.5-14.0) % Plt Count (150-450) x10^3/uL MPV (7.5-11.0) fL Gran % (36.0-66.0) % Immature Gran % (Auto) (0.00-0.4) % Nucleat RBC Rel Count (0.00-0.1) % Eos # (Auto) (0-0.5) x10^3/uL Immature Gran # (Auto) (0.00-0.03) x10^3u/L Absolute Lymphs (auto) (1.0-4.6) x10^3/uL Absolute Monos (auto) (0.0-1.3) x10^3/uL Absolute Nucleated RBC (0.00-0.01) x10^3u/L Lymphocytes % (24.0-44.0) % Monocytes % (0.0-12.0) % Eosinophils % (0.00-5.0) % Basophils % (0.0-0.4) % Absolute Granulocytes (1.4-6.9) x10^3/uL Basophils # (0-0.4) x10^3/uL PT (9.4-12.5) SECONDS INR (0.8-3.0) APTT (25.1-36.5) SECONDS Puncture Site pCO2 (35-45) mmHg pO2 (75-100) mmHg Base Excess (-2.0-2.0) O2 Saturation (94-100) g/dF ABG pH (7.35-7.45) ABG HCO3 (22-28) ABG O2 Sat (Measured) (95-100) % Rinku Test A-a Gradient a/A Ratio Hemoglobin Carboxyhemoglobin (0.0-6.9) % THgb Methemoglobin (1.4-1.5) % Potassium (3.5-5.1) Temperature C POC O2 Flow Rate % Sodium (137-145) mmol/L Chloride (98-107) mmol/L Carbon Dioxide (22-30) mmol/L Anion Gap (5-15) MEQ/L BUN (9-20) mg/dL Creatinine (0.66-1.25) mg/dL Estimated GFR ML/MIN Glucose (74-106) mg/dL Lactic Acid (0.4-2.0) Calcium (8.4-10.2) mg/dL Magnesium (1.6-2.3) mg/dL Total Bilirubin (0.2-1.3) mg/dL AST (17-59) U/L ALT (0-50) U/L Alkaline Phosphatase (38-126) U/L Troponin I (0.000-0.034) ng/mL NT-Pro-B Natriuret Pep (<300) pg/mL Serum Total Protein (6.3-8.2) g/dL Albumin (3.5-5.0) g/dL Procalcitonin (0.030-0.080) ng/mL Urine Color Yellow (Yellow) Urine Appearance Clear (Clear) Urine pH 8.5 A (4.6-8.0) Ur Specific [place] 1.010 (1.005-1.030) Urine Protein Negative (Negative) Urine Glucose (UA) Negative (Negative) mg/dL Urine Ketones Negative (Negative) Urine Blood Negative (Negative) Urine Nitrite Negative (Negative) Urine Bilirubin Negative (Negative) Urine Urobilinogen 1.0 A (0.2) mg/dL Ur Leukocyte Esterase Negative (Negative) U Hyaline Cast (Auto) NONE SEEN (0-2) /LPF Urine Microscopic RBC 0-2 (0-5) /HPF Urine Microscopic WBC 0-2 (0-5) /HPF Ur Epithelial Cells None Seen (None Seen) /HPF Urine Bacteria None Seen (None Seen) /HPF Urine Culture Reflexed NO (NO) Influenza Type A Ag (NEGATIVE) Influenza Type B Ag (NEGATIVE) RSV (PCR) (NEGATIVE) SARS-CoV-2 (PCR) (NEGATIVE) - Progress Progress: improved Air Movement: fair Progress Note: 11/05/22 00:40 Labs WBC 16.4, Hb 8.2, Na 131, AST 78, K 3.7, Mg 2.3, lactate 1.2, BNP 222, Troponin neg, procalcitonin 51.2 pH 7.52, pCO2 39, pO2 74 COVID, flu, RSV neg CT chest/abd/pelvis pending Will start Vanc and Zosyn at this time and deescalate as further results become available. 11/05/22 03:05 CT showed worsening metastatic disease. Discussed transfer to [facility] vs hospice and patient elects to transfer. I will contact [facility] to inquire about bed situation. 11/05/22 03:[address] Joya at [facility] who agrees to accept for admission at [facility]. 11/05/22 04:10 [id number] bed available at [facility], will request transport. Blood Culture(s) Obtained: Yes Counseled pt/family regarding: lab results, diagnosis, need for follow-up, rad results Medical Desision Making - Discussion of managment Care discussed with:: hospitalist Reviewed:: Test results Agreed on:: Treatment plan - Diagnostic Testing Diagnostic test were ordered, analyzed, and reviewed by me: Yes Radiological Interpretation: Interpreted by me, Reviewed by me, Teleradiologist Report - Risk of complications The pt has a mod risk of morbidity or mortality based on: Need for prescription drug management The pt has a high risk of morbidity or mortality based on: Decision regarding hospitilization or escalation of hosp level of care - Departure Departure Disposition: Transfer ([facility]) Clinical Impression: Intractable pain, Chest pain, Metastatic cancer, Dyspnea, Elevated transaminase level, Leukocytosis, Anemia, Hepatomegaly, Hyponatremia Condition: Fair Critical Care Time: No Referrals: LEO MORRELL NP [Primary Care Provider] - Follow up/PCP as directed Instructions: Lung Cancer (DC)
[2022-11-04] MEDS ORDERED: DUONEB 0.5-3 MG/3 ml Neb IH ONE ×2 (22:53→23:05)
[2022-11-04] MEDS ORDERED: solu-MEDROL 125 MG, Sterile H2O 10 ml 2 ML IV ONE ×2 (22:53)
[2022-11-04] MEDS ORDERED: Lasix 40 MG/4 ML IV ONE (22:53)
[2022-11-04] MEDS ORDERED: Ativan 2 MG/1 ML VIAL IV ONE (22:53)
[2022-11-04] MEDS ORDERED: MORPHINE SULFATE 2 MG INJ IV ONE (22:57)
[2022-11-04 23:12] LABS: A-aADO2 27; ABG HEMOGLOBIN 10.7; ABG POTASSIUM 3.6 (3.5-5.1); ABG SITE RIGHT RADIAL; ALLEN TEST OK? YES; ARTERIAL BLD GAS O2 SATURATION 97.6 % (95-100); ARTERIAL BLOOD GAS BASE EXCESS 8.3 (-2.0-2.0); ARTERIAL BLOOD GAS FIO2 21 %; ARTERIAL BLOOD GAS PCO2 39 mmHg (35-45); ARTERIAL BLOOD GAS PO2 74 mmHg (75-100); ARTERIAL BLOOD GAS pH 7.52 (7.35-7.45); CARBOXYHEMOGLOBIN 3.1 % THgb (0.0-6.9); HCO3- 31.8 (22-28); HGB O2 SAT 93.8 g/dF (94-100); Lactic Acid 1.2 (0.4-2.0); Methhemoglobin 0.8 % (1.4-1.5); paO2 pAO1 0.73
[2022-11-04] MEDS ORDERED: solu-MEDROL ONE (23:25)
[2022-11-04] MEDS ORDERED: Sterile H2O 10 ml IJ ONE (23:25)
[2022-11-04] MEDS ORDERED: Lasix 40 MG/4 ML ONE (23:25)
[2022-11-04] MEDS ORDERED: MORPHINE SULFATE 2 MG INJ ONE (23:26)
[2022-11-04] MEDS ORDERED: Ativan 2 MG/1 ML VIAL ONE (23:26)
[2022-11-04 23:31] LABS: Absolute Neutrophil Ct (ANC) 12.01 x10^3/uL (1.4-6.9); BASOPHIL % 0.4 % (0.0-0.4); Basophil (Absolute #) 0.06 x10^3/uL (0-0.4); Eosinophil % 0.1 % (0.00-5.0); Eosinophil (Absolute #) 0.02 x10^3/uL (0-0.5); Hematocrit 25.9 % (42-50); Hemoglobin 8.1 g/dL (12.5-18.0); IMMATURE GRAN # 0.15 x10^3u/L (0.00-0.03); IMMATURE GRAN % 0.9 % (0.00-0.4); Lymphocyte (Absolute #) 1.92 x10^3/uL (1.0-4.6); Lymphocytes % 11.7 % (24.0-44.0); Mean Cell Volume 98.9 fL (78-100); Mean Corpuscular Hemoglobin 30.9 pg (26-32); Mean Corpuscular Hgb Concent. 31.3 g/dL (32-36); Mean Platelet Volume 9.9 fL (7.5-11.0); Monocyte (Absolute #) 2.24 x10^3/uL (0.0-1.3); Monocytes % 13.7 % (0.0-12.0); Neutrophil % 73.2 % (36.0-66.0); Platelet Count 308 x10^3/uL (150-450); Red Blood Count 2.62 x10^6/uL (4.1-5.6); Red Cell Distribution Width 16.8 % (11.5-14.0); White Blood Count 16.4 x10^3/uL (4.0-10.5)
[2022-11-04 23:41] LABS: ALBUMIN 3.1 g/dL (3.5-5.0); ALKALINE PHOSPHATASE 204 U/L (38-126); ANION GAP 5.6 MEQ/L (5-15); BLOOD UREA NITROGEN 8 mg/dL (9-20); CHLORIDE 93 mmol/L (98-107); Calcium 7.6 mg/dL (8.4-10.2); Carbon Dioxide 36 mmol/L (22-30); Creatinine 1 0.39 mg/dL (0.66-1.25); EST GLOMERULAR FILTRATION RATE > 60.0 ML/MIN; Glucose 83 mg/dL (74-106); MAGNESIUM 2.3 mg/dL (1.6-2.3); Potassium 3.7 mmol/L (3.5-5.1); SGOT/AST 78 U/L (17-59); SGPT/ALT 24 U/L (0-50); SODIUM 131 mmol/L (137-145); Total Protein 5.8 g/dL (6.3-8.2)
[2022-11-04 23:43] LABS: INR 1.01 (0.8-3.0); PTT 24.9 SECONDS (25.1-36.5)
[2022-11-05 00:04] LABS: INFLUENZA A NEGATIVE (NEGATIVE); INFLUENZA B NEGATIVE (NEGATIVE); RESPIRATORY SYNCTIAL VIRUS NEGATIVE (NEGATIVE); SARS-CoV-2 Xpert Express NEGATIVE (NEGATIVE)
[2022-11-05] MEDS ORDERED: MORPHINE SULFATE 2 MG INJ IV ONE ×2 (00:25→02:37)
[2022-11-05] MEDS ORDERED: MORPHINE SULFATE 2 MG INJ ONE ×2 (00:33→02:48)
[2022-11-05] MEDS ORDERED: Sodium Chloride 0.9% 1000 ML 1,000 ML IV STA (00:43)
[2022-11-05] MEDS ORDERED: VANCOMYCIN 1 GRAM/200 ML BAG 1 GM/200 ML PIGGYBACK IV ONE ×2 (00:43→01:14)
[2022-11-05] MEDS ORDERED: PIPERACILLIN/TAZOBACTAM 3.375 GM in Sodium Chloride 100ML MINI-BAG PLUS 100 ML IV ONE (00:43)
[2022-11-05] MEDS ORDERED: PIPERACILLIN/TAZOBACTAM IV ONE (00:48)
[2022-11-05] MEDS ORDERED: Sodium Chloride 0.9% 1000 ML 1,000 ML ONE (00:49)
[2022-11-05] MEDS ORDERED: Sodium Chloride 100ML MINI-BAG PLUS 100 ML IV ONE (00:49)
[2022-11-05 01:12] LABS: Appearance Clear (Clear); Bacteria None Seen /HPF (None Seen); Bilirubin Negative (Negative); Blood Negative (Negative); Epithelial Cells None Seen /HPF (None Seen); Glucose, Urine Negative (Negative); Hyaline Casts NONE SEEN /LPF (0-2); Ketones Negative (Negative); Leukocyte Esterase Negative (Negative); Nitrite Negative (Negative); Ph 8.5 (4.6-8.0); Protein,Urine Dip Negative (Negative); RBC 0-2 /HPF (0-5); WBC 0-2 /HPF (0-5)
[2022-11-05 01:14] LABS: ADD URINE CULTURE? NO (NO)
--- NOTE | 2022-11-05 01:58 | XRAY ---
CLINICAL HISTORY:chest pain COMPARISON:None; TECHNIQUES:CT chest without IV contrast in the axial plane. Coronal and sagittal images have also been acquired. DLP: 401.83 mGy*cm. CTDI: 12.28 mGy; FINDINGS: The thyroid gland is unremarkable. No size significant supraclavicular or axillary lymphadenopathy. Multiple enlarged mediastinal lymph nodes are noted. An enlarged right para tracheal lymph node is seen measuring 2.7 x 1.3 cm. An enlarged sub carinal lymph node measures 2.5 x 2 cm. Right hilar dany mass measures 5.1 x 2.7 cm. A nodular lobulated lung mass is noted in the medial segment of right middle lobe measuring 4.7 x 2 cm. A spiculated lung nodule with fibrotic bands radiating from it is noted in the left upper lobe, it measures 1.5 x 1.2 cm. A 2 mm nodule is seen in the apical segment of left upper lobe. Image 10/56 axial series. Left basal atelectatic bands are noted. No pleural effusions. Central airways are patent. Heart and great vessels are not enlarged. No pericardial effusion. Sections through the upper abdomen show multiple hepatic hypodensities. Bone window shows an osseous abnormality in the left scapula with cortical erosion. A lytic osseous lesion is noted in the left scapula. The heterogeneous density of T8 vertebral body with a compression fracture. Cortical expansion and sclerosis with pathological fracture is seen in the right second rib. Healed fracture is seen in right eighth rib. IMPRESSION: Mediastinal lymphadenopathy with a large lobulated mass in the right middle lobe and spiculated mass in left upper lobe. Multiple osseous and hepatic lesions. Findings suggestive of metastatic disease. Primary in this case could be lung mass. Further histopathological correlation WITH PET-CT is advised. CT-guided biopsy of lung mass or ultrasound guided hepatic lesion biopsy may be considered. Electronically Signed by: Rukhsana Celeste MD. (11/05/2022 00:44:33 CLEANER)
--- NOTE | 2022-11-05 02:14 | XRAY ---
CLINICAL HISTORY:History of the liver, small intestine, and lung cancer. An active complaint is abdominal pain; COMPARISON:Comparison made with prior CT abdomen and pelvis dated 08/07/2022; TECHNIQUES:CT scan of the abdomen and pelvis was performed without IV contrast. CDTI measures 20.91mGY and DLP measures 1196.05 mGY* cm; FINDINGS: Interval increase in size and numbers of previously identified multiple intrahepatic lesions. The liver is enlarged and measures 25 cm. One of the largest lesions in segment IV of the liver measures 7.7 x 7.6 cm and another lesion in segment measures 9.3 x 8.5 cm. Previously One of the largest lesions In segment measured 6 cm in size. The interval development of subcapsular sub-diaphragmatic collection measures 10 x 1.8 cm. Mild intrahepatic fat stranding was identified. No intra-or extrahepatic biliary dilation. Gall bladder appears normal with wall thickness. No radio-opaque calculus or pericholecystic fluid was identified. Common bile appears normal. Pancreas appears normal. No peripancreatic fat stranding, pancreatic pseudocyst or peripancreatic fluid collection. Spleen normal in size, no mass seen. A right adrenal gland is normal. Redemonstration of 3.1 cm low-attenuation nodule in the left adrenal gland which remains unchanged. In addition, an enhancing nodule of 0.7 0.8 cm seen left adrenal gland, previously it measured 1.2 x 1.5 cm. Both kidneys are normal in size and shape. Redemonstration of left renal focal medullary nephrocalcinosis measuring 5 mm. No cyst mass or hydronephrosis was seen on either side. Both ureters and urinary bladder appear normal. Redemonstration of nonspecific prostatic parenchymal calcification. Prostate is normal in size and measures 3.5 x 4.5 x 3.7 cm. Stomach and small bowel loops are unremarkable. Caecum and ileocecal junction appear normal. Fecal loading of the large bowel loops without evidence of bowel obstruction. Sigmoid and rectum appear normal. Redemonstaration of an enlarged para-aortic lymph node measuring 2.8 x 1.7 cm, not significantly changed as compared to prior.. Axial series:41/105. Included section of lung bases. Redemonstration of a few well-defined rounded soft tissue pulmonary nodules in the medial segment of the right middle lobe. One of the largest pulmonary nodules measures 1.9 x 1.6 cm in size and is suggestive of a pulmonary metastatic nodule. Interval development of patchy sclerotic in L1, L2, and L3 vertebral bodies which is suggestive of bony metastasis. Redemonstration of degenerative changes in visualized thoracolumbar spine. IMPRESSION: 1. Liver is enlarged and studded with multiple hepatic metastatic lesions which show significant interval increase in size and numbers. 2. Interval development of subcapsular sub-diaphragmatic collection measures 10 x 1.8 cm. Mild intrahepatic fat stranding was identified. 3. Unchanged left Adrenal nodular lesions. Electronically Signed by: Rukhsana Celeste MD. (11/05/2022 01:01:42 [employer])
[2022-11-05 04:19] VITALS: BP 110/44; PULSE 83; O2SAT 95
== END 2022-11-05 04:25 | disposition short-term general hospital (02) ==
LOC: ED 22:38
DX: C34.90 Malignant neoplasm of unspecified part of unspecified bronchus or lung (principal); C78.7 Secondary malignant neoplasm of liver and intrahepatic bile duct; G89.3 Neoplasm related pain (acute) (chronic); R07.9 Chest pain, unspecified; R06.00 Dyspnea, unspecified; R74.01 Elevation of levels of liver transaminase levels; D72.829 Elevated white blood cell count, unspecified; D64.9 Anemia, unspecified; R16.0 Hepatomegaly, not elsewhere classified; E87.1 Hypo-osmolality and hyponatremia; I10 Essential (primary) hypertension; Z79.891 Long term (current) use of opiate analgesic; Z79.52 Long term (current) use of systemic steroids; Z79.899 Other long term (current) drug therapy; Z28.310 Unvaccinated for COVID-19; Z72.0 Tobacco use; Z20.828 Contact with and (suspected) exposure to other viral communicable diseases
CPT/HCPCS: 0241U; 36000; 36415; 36600; 71250; 74176; 80053; 81001; 82375; 82803; 83605; 83735; 83880; 84145; 84484; 85025; 85610; 85730; 87040; 93005; 93041; 94640; 94760; 96360; 96374; 99285; 96365; 96367; 96375; 96376; J1940; J2060; J2270; J2930; A9270-GY; J3370